=== PATIENT | female | born 1960 | race African-American/Black ===

== ENCOUNTER 2018-07-23 21:15 | Emergency (ER) | payer SELFPAY ==
[~2018-07-23] VITALS: Ht 170.2 cm; Wt 91.0 kg
[2018-07-24] MEDS ORDERED: KETOROLAC 30MG/ML VIAL IM ONE (00:45)
[2018-07-24] MEDS ORDERED: ACETAMINOPHEN 325MG TABLET PO ONE (00:45)
[2018-07-24 00:47] VITALS: BP 132/81
== END 2018-07-24 00:48 | disposition home or self-care (01) ==
LOC: ER 21:15
DX: M54.5 Low back pain (principal); G89.29 Other chronic pain
CPT/HCPCS: 96372; 99283; J1885; Z7610